=== PATIENT | male | born 2000 | race African-American/Black ===

== ENCOUNTER 2020-12-04 22:27 | Emergency (ER) | payer SELFPAY ==
[2020-12-04 22:28] VITALS: BP 132/71; PULSE 89; RESP 16; TEMP 36.1; O2SAT 99; BMI 20.6
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
[2020-12-04] MEDS: HYDROcodone Bitartrate/Apap 5/325 Tablet PO (22:45)
--- NOTE | 2020-12-04 22:55 | RAD_ITS ---
STUDY: X-RAY - RIGHT WRIST REASON FOR EXAM: Male, 20 years old. Pt punched wooden door. Rt wrist pain. TECHNIQUE: 3 view(s) of the wrist were obtained. COMPARISON: Right hand x-ray on the same date FINDINGS: Normal visualized distal radius and ulna. Normal radiocarpal articulation. Normal distal radioulnar articulation. A threaded screw is present across the scaphoid. Lunotriquetral coalition noted. Normal carpal bones. Normal carpal articulations. Normal carpometacarpal articulation of the thumb. Normal second through fifth carpometacarpal articulations. Normal visualized metacarpal bones. The soft tissue structures are unremarkable. No visualized acute fractures of the wrist. RAD/Wrist min 3 Views IMPRESSION: Normal x-ray examination of the wrist. Electronically Signed: Ankit Garcia MD at 23:28 EST , Service support ,
--- NOTE | 2020-12-04 22:55 | RAD_ITS ---
STUDY: X-RAY - RIGHT HAND REASON FOR EXAM: Male, 20 years old. Pt punched wooden door. Pain in index and ring fingers. TECHNIQUE: 3 view(s) of the hand. COMPARISON: None. FINDINGS: A small concave defect and cortical irregularity is present on the medial side of the head of the second metacarpal bone suggests a mild chip or impaction fracture. A threaded screw is present across the scaphoid. Normal radiocarpal articulation. Normal distal radioulnar joint. Normal visualized carpal bones. Normal carpal articulations Normal carpometacarpal articulation of the thumb. Normal second through fifth carpometacarpal joints. Normal metacarpi. Normal metacarpophalangeal joint of the thumb. Normal interphalangeal joint of the thumb. Normal proximal and distal phalanges of the thumb. Normal metacarpophalangeal joints of the second through fifth fingers. Normal proximal and distal interphalangeal joints of the second through fifth fingers. Normal phalanges of the second through fifth fingers. Mild soft tissue swelling is present over the dorsum of the hand. RAD/Hand Min 3 Views IMPRESSION: 1. A small concave defect and cortical irregularity is present on the medial side of the head of the second metacarpal bone suggests a mild chip or impaction fracture. Electronically Signed: Ankit Garcia MD at 23:27 EST , Service support ,
== END 2020-12-04 23:34 | disposition home or self-care (01) ==
LOC: ED 23:33
PROVIDERS: Emergency Provider Emergency Medicine
DX: S63.501A Unspecified sprain of right wrist, initial encounter (principal); F17.200 Nicotine dependence, unspecified, uncomplicated; W22.09XA Striking against other stationary object, initial encounter; Y93.89 Activity, other specified; Y92.89 Other specified places as the place of occurrence of the external cause; Y99.8 Other external cause status
CPT/HCPCS: 73110; 73130; 99283